=== PATIENT | male | born 1985 | race Caucasian/White ===

== ENCOUNTER 2017-02-23 21:05 | Emergency (ER) | payer OTHER ==
[~2017-02-23] VITALS: Ht 170.2 cm; Wt 82.0 kg
[2017-02-23 21:06] VITALS: BP 148/86; PULSE 117; RESP 18; TEMP 98.5; O2SAT 97
--- NOTE | 2017-02-23 22:14 | PD ---
Physical Exam Date Seen by Provider: Feb 23, 2017 Time Seen by Provider: 22:10 Narrative 31 y/o male [place] [facility] [place] with probable [place] arm fracture. Hx previous fracture in the left Humerus last May. No Other injury. Pain 7- 10. Denies Numbness in distal Left Arm. Vital signs reviewed. Patient stable. Awaiting Bed placement. Data Data Last Documented VS Vital Signs Date Time Temp Pulse Resp B/P Pulse Ox O2 Delivery O2 Flow Rate FiO2 02/23/17 21:06 98.5 117 18 148/86 97 Room Air [facility] Medical Record Reviewed: Yes Supervised Visit with TYREE: Yes Condition: Stable Derrick Zamorano Feb 23, 2017 22:14
[2017-02-23] MEDS ORDERED: HYDR-3533 PO (22:22)
--- NOTE | 2017-02-23 22:22 | PD ---
HPI Chief Complaint: Injury Time Seen by Provider: 22:19 Travel History International Travel<30 days: No Contact w/Intl Traveler<30days: No Traveled to known affect area: No History of Present Illness HPI 31-year-old white male presents to emergency Department with complaints of left upper arm pain. He states that he had broken his left humerus several months ago. He states that [place] [employer] [place] and reinjured it. He states that he feels that he has refractured it. He denies any injury to his head, neck or back. He has had no numbness, tingling. He does complain weakness due to pain. PFSH Past Medical History Narrative Medical Asthma, left humerus fracture Tetanus Vaccination: < 5 Years Past Surgical History Surgical History: No Previous Surgery Social History Alcohol Use: Yes Tobacco Use: No Allergies-Medications (Allergen,Severity, Reaction): Coded Allergies: No Known Allergies (Unverified , 02/23/17) Reported Meds & Prescriptions Reported Meds & Active Scripts Active No Active Prescriptions or Reported Medications Review of Systems Except as stated in HPI: all other systems reviewed are Neg Physical Exam Narrative GENERAL: This is a well-nourished, well-developed patient, in no apparent distress. SKIN: No rashes, ecchymoses or lesions. Warm and dry. HEAD: Atraumatic. Normocephalic. EYES: PERRL, EOMI, no discharge or injection. No scleral icterus. EARS: Clear NOSE: Nasal turbinates appear normal. THROAT: Mucosa pink and moist. Airway patent. NECK: Trachea midline. supple, moves head freely. LUNGS: Clear to auscultation. CV: Regular in rhythm. ABDOMEN: Soft nontender. EXT: No clubbing cyanosis or edema. Examination of the left upper extremity reveals an obvious deformity of the mid humerus. He has significant decreased range of motion due to pain. No pain in the elbow, wrist, hand. Median/ulnar/ renal nerves intact. The skin is intact. Data Data Last Documented VS Vital Signs Date Time Temp Pulse Resp B/P Pulse Ox O2 Delivery O2 Flow Rate FiO2 02/23/17 22:12 16 02/23/17 21:06 98.5 117 148/86 97 Room Air Orders Ice/Cold Pack (02/23/17 22:18) Splint Or Brace Apply/Monitor (02/23/17 22:18) Humerus (Min 2vws) (02/23/17 22:18) MDM Medical Decision Making Medical Screen Exam Complete: Yes Emergency Medical Condition: Yes Medical Record Reviewed: Yes Differential Diagnosis MDM: High Differential diagnoses: Fracture, sprain, strain, dislocation, contusion, neurovascular injury Narrative Course Patient's place in a coaptation splint, Lortab 5 mg by mouth, ice pack applied. This is left humerus fracture Diagnosis Primary Impression: Closed left humeral fracture Qualified Code: S42.302A - Closed fracture of shaft of left humerus, unspecified fracture morphology, initial encounter Patient Instructions: General Instructions, Narcotic given in the ED Med/Other Pt SpecificInfo: Prescription(s) given Scripts No Active Prescriptions or Reported Meds Disposition: 01 DISCHARGE HOME Condition: Stable Chu King Feb 23, 2017 22:22
[2017-02-23] MEDS ORDERED: ACETAMINOPHEN/HYDROcodone 325 MG/5 MG TAB PO ONE (22:30)
--- NOTE | 2017-02-23 22:42 | RADRPT ---
EXAM DATE/TIME: 02/23/2017 22:27 [facility] COMPARISON: No previous studies available for comparison. INDICATIONS : Left humerus pain, fell skate boarding MEDICAL HISTORY : Fracture left humerus 8 weeks ago SURGICAL HISTORY : None. ENCOUNTER: Initial ACUITY: 1 day PAIN SCORE: 8/10 LOCATION: Left Humerus FINDINGS: There is a mid shaft humeral fracture with slight angular deformity. Fracture appears subacute. No di slocation. CONCLUSION: 1. Fracture midshaft humerus with mild angulation. Fracture appears subacute. Chu Rodriguez MD on February 23, 2017 at 22:40 Board Certified Radiologist. This report was verified electronically.
== END 2017-02-24 00:04 | disposition home or self-care (01) ==
LOC: NEPK 21:05
DX: S42.302A Unspecified fracture of shaft of humerus, left arm, initial encounter for closed fracture (principal); W19.XXXA Unspecified fall, initial encounter
CPT/HCPCS: 29125; 73060